=== PATIENT | female | born 1990 | race Two or more races ===

== ENCOUNTER 2021-02-13 08:35 | Emergency (ER) | payer MEDICAID, OTHER ==
[~2021-02-13] VITALS: Ht 157.5 cm; Wt 97.1 kg
[2021-02-13 10:01] LABS: Urine Bacteria NONE SEEN /hpf (None Seen); Urine Blood 3+ /uL (Negative); Urine Mucus FEW (None Seen); Urine WBC 762 /hpf (0 - 5)
[2021-02-13 10:12] LABS: Urine Specific Gravity 1.026 (1.001-1.035)
[2021-02-13 11:40] VITALS: BP 112/80
== END 2021-02-13 11:49 | disposition home or self-care (01) ==
LOC: ER 08:35
DX: O23.41 Unspecified infection of urinary tract in pregnancy, first trimester (principal); Z3A.12 12 weeks gestation of pregnancy
CPT/HCPCS: 36415; 76801; 81001; 84702

== ENCOUNTER 2025-04-12 12:51 | Emergency (ER) | payer MEDICAID ==
[~2025-04-12] VITALS: Ht 157.5 cm; Wt 100.0 kg
--- NOTE | 2025-04-12 13:21 | ED.PDOC ---
SOB-HPI HPI Comments 34-year-old female with PMHx of asthma presents to the ED with a chief complaint of shortness of Breath onset 1 day. She began experiencing nasal congestion, sore throat, cough 1 day ago. Last night, she began experiencing shortness of breath with chest pain we had her back. She has used her inhaler, ran out of her nebulizer medication, has not had any improvement of symptoms. Denies fever, chills, nausea, vomiting, diarrhea, hematemesis, headache, dizziness. No other symptoms or modifying factors presented this time. Chief Complaint: Asthma Time Seen by MD: 13:15 Primary Care Provider: STEPHY Mode of Arrival: Ambulatory Past Medical History PAST MEDICAL HISTORY: Asthma Surgical History: Denies all surgeries RAM PRESS OPERATOR History: No Pertinent RAM PRESS OPERATOR History Family History Family History: Reviewed,noncontributory to illness Social History Smoker: Non-Smoker Alcohol: Denies ETOH Use Drugs: Denies Drug Use Lives In: Home Constitutional: denies: chills, diaphoresis, fatigue, fever, malaise, sweats, weakness, others EENTM: reports: nose congestion, throat pain; denies: blurred vision, double vision, ear bleeding, ear discharge, ear drainage, ear pain, ear ringing, eye pain, eye redness, hearing loss, mouth pain, mouth swelling, nasal discharge, nose bleeding, nose pain, photophobia, tearing, throat swelling, voice changes, others Respiratory: reports: cough, shortness of breath; denies: hemoptysis, orthopnea, SOB at rest, SOB with excertion, stridor, wheezing, others Cardiovascular: reports: chest pain; denies: dizzy spells, diaphoresis, Dyspnea on exertion, edema, irregular heart beat, left arm pain, lightheadedness, palpitations, PND, syncope, others Gastrointestinal: denies: abdomen distended, abdominal pain, blood streaked bowels, constipated, diarrhea, dysphagia, difficulty swallowing, hematemesis, melena, nausea, poor appetite, poor fluid intake, rectal bleeding, rectal pain, vomiting, others Genitourinary: denies: abnormal vagina bleeding, burning, dyspareunia, dysuria, flank pain, frequency, hematuria, incontinence, pain, , vagina discharge, urgency, others Neurological: denies: dizziness, fainting, headache, left sided numbness, left sided weakness, numbness, paresthesia, pre-existing deficit, right sided numbness, right sided weakness, seizure, speech problems, tingling, tremors, weakness, others Musculoskeletal: reports: back pain; denies: gout, joint pain, joint swelling, muscle pain, muscle stiffness, neck pain, others Integumetry: denies: bruises, change in color, change in hair/nails, dryness, laceration, lesions, lumps, rash, wounds, others Allergic/Immunocompromised: denies: Difficulty Healing, Frequent Infections, Hives, Itching, others Hematologic/Lymphatic: denies: anemia, blood clots, easy bleeding, easy bruising, swollen glands, others Endocrine: denies: excessive hunger, excessive sweating, excessive thirst, excessive urination, flushing, intolerance to cold, intolerance to heat, unexplained weight gain, unexplained weight loss, others Psychiatric: denies: anxiety, bipolar disorder, depression, hopeless, panic disorder, schizophrenia, sleepless, suicidal, others All Other Systems: Reviewed and Negative Physical Exam General Appearance: Normal HEENT: Normal ENT Inspection, Pharynx Normal, TMs Normal Neck: Full Range of Motion, Non-Tender, Normal, Normal Inspection Respiratory: Chest Non-Tender, Lungs Clear, No Accessory Muscle Use, No Respiratory Distress, Normal Breath Sounds Cardiovascular: No Edema, No JVD, No Murmur, No Gallop, Normal Peripheral Pulses, Regular Rate/Rhythm Breast Exam: Deferred Gastrointestinal: No Organomegaly, Non Tender, No Pulsatile Mass, Normal Bowel Sounds, Soft Genitalia: Deferred Pelvic: Deferred Rectal: Deferred Extremities: No calf tenderness, Normal capillary refill, Normal inspection, Normal range of motion, Non-tender, No pedal edema Musculoskeletal : Apperance: Normal Neurologic: Alert, obiee lead developer II-XII nml as Tested, No Motor Deficits, Normal Affect, Normal Mood, No Sensory Deficits Cerebellar Function: Normal Reflexes: Normal Skin: Dry, Normal Color, Warm Lymphatic: No Adenopathy Was a procedure done? Was a procedure done?: No Differential Dx Differential Diagnosis: Asthma, Bronchitis, Pneumonia, URI X-Ray, Labs, Meds, VS Vital Signs Date Time Temp Pulse Resp B/P (MAP) Pulse Ox O2 Delivery O2 Flow Rate FiO2 04/12/25 14:14 14 98 Room Air* 0 04/12/25 12:52 97.8 96 20 142/87 95 97.8 Current Medications Medications (Trade) Dose Ordered Sig/Garcia Route Start Time Stop Time Status Last Admin Albuterol (Ventolin Medneb) 5 mg ONCE ONCE NEB 04/12/25 13:15 04/12/25 13:17 DC 04/12/25 14:11 Ipratropium [place] (Atrovent Medneb) 0.5 mg ONCE ONCE NEB 04/12/25 13:15 04/12/25 13:17 DC 04/12/25 14:11 Prednisone 40 mg ONCE ONCE PO 04/12/25 13:15 04/12/25 13:17 DC 04/12/25 13:23 Time of 1ST Reevaluation: 13:45 Reevaluation 1ST: Unchanged Patient Education/Counseling: Diagnosis, Treatment, Prognosis Family Education/Counseling: No Family Present SEPSIS Sepsis Screen Date sepsis recognized/suspect: Apr 12, 2025 Time Sepsis recognized/suspect: 1255 Recent Procedure: No On Antibiotic Therapy: No Respiratory Rate >20: No Heart Rate >90: Yes Temp<36 C (96.8 F) or >38.3 C: No SBP <90 or MAP <65 mmHG: No New Acute Mental Status Change: No Is the patient on CPAP, BIPAP,: No Physician Orders Chest Portable (04/12/25 13:15) Vital Signs Date Time Temp Pulse Resp B/P (MAP) Pulse Ox O2 Delivery O2 Flow Rate FiO2 04/12/25 14:14 14 98 Room Air* 0 21 04/12/25 12:52 97.8 96 20 142/87 95 97.8 Medications Medications Dose Ordered Sig/Garcia Route Start Time Stop Time Status Last Admin Dose Admin Albuterol 5 mg ONCE ONCE NEB 04/12/25 13:15 04/12/25 13:17 DC 04/12/25 14:11 Ipratropium [place] 0.5 mg ONCE ONCE NEB 04/12/25 13:15 04/12/25 13:17 DC 04/12/25 14:11 Prednisone 40 mg ONCE ONCE PO 04/12/25 13:15 04/12/25 13:17 DC 04/12/25 13:23 Departure 1 Departure Time of Disposition: 14:36 (Patient likely with asthma exacerbation. Patient received albuterol and ipratropium he is now feeling significantly better. We will discharge patient home with outpatient follow up) Impression: Primary Impression: Acute asthma Disposition: HOME / SELF CARE / HOMELESS Condition: Stable Additional Instructions: You likely had an asthma exacerbation. You should use your inhaler as directed. Your prescribed steroids. Please take as directed. It is important to follow up with the regular doctor within 1 week. If your symptoms worsen or you have any other concerns please return to the emergency room. e-Prescriptions Albuterol Sulfate (Albuterol Sulfate) 0.083 % Neb 1 VIAL NEB Q4HPRN PRN for 14 Days, #50 VIAL Prov: CAR ABRAHAM MD 04/12/25 Prednisone (Prednisone) 20 Mg Tab 40 MG PO DAILY for 5 Days, #10 MG Prov: CAR ABRAAHM MD 04/12/25 Discharged With: Self Critical Care Note Critical Care Time?: No Stability Stability form required: No Heart Score Heart Score: Heart Score Response (Comments) Value History N/A 0 EKG N/A 0 Age N/A 0 Risk Factors N/A 0 Troponin N/A 0 Total 0 I personally scribed for CAR ABRAHAM MD ([email or web address]) on 04/12/25 at 13:21. Electronically submitted by Stephanie Jones ([email or web address]). CAR ABRAHAM MD Apr 12, 2025 13:21
[2025-04-12] MEDS: predniSONE 20 MG TAB PO ONE (13:23)
--- NOTE | 2025-04-12 13:48 | DVH ---
XY CHEST PORTABLE, HISTORY: sob COMPARISON: None None TECHNICAL DATA: 1 view of the chest was obtained. FINDINGS: Lines and tubes: None Cardiomediastinal silhouette: normal Pulmonary vasculature: normal Lung expansion: normal Lung airspace: normal Lung interstitium: normal Pleura: normal Pneumothorax: no Bones: Unremarkable Other: no IMPRESSION: No acute intrathoracic abnormality.
[2025-04-12] MEDS: ALBUTEROL SULF 2.5 MG/0.5ML(0.5%) NEB SOLN NEB ONE (14:11)
[2025-04-12] MEDS: IPRATROPIUM BROM 0.5 MG/2.5ML INH SOL NEB ONE (14:11)
[2025-04-12] MEDS ORDERED: ALBU0.084 NEB (14:38)
[2025-04-12] MEDS ORDERED: PRED20TA2 PO (14:38)
[2025-04-12 14:54] VITALS: BP 134/78; PULSE 125; RESP 18; TEMP 98.4; O2SAT 98
== END 2025-04-12 14:56 | disposition home or self-care (01) ==
LOC: ER 12:54
DX: J45.909 Unspecified asthma, uncomplicated (principal)
CPT/HCPCS: 71045; 94640; 99283; J7512